=== PATIENT | male | born 1970 | race Caucasian/White ===

== ENCOUNTER 2020-11-20 09:35 | Emergency (ER) | payer OTHER ==
[~2020-11-20 09:35] MED LIST: BACTRIM DS TAB1 EACH PO; LEVAQUIN750 MG PO; NORCO 5-325 TA1 EACH PO
== END 2020-11-20 14:05 | disposition home or self-care (01) ==
LOC: ER1 09:35
DX: S46.912A Strain of unspecified muscle, fascia and tendon at shoulder and upper arm level, left arm, initial encounter (principal); N43.3 Hydrocele, unspecified; F17.210 Nicotine dependence, cigarettes, uncomplicated; X50.0XXA Overexertion from strenuous movement or load, initial encounter
CPT/HCPCS: 73030; 76870; 99284